=== PATIENT | male | born 1965 | race Hispanic/Latino ===

== ENCOUNTER 2017-08-30 22:08 | Inpatient (IN) | payer MEDICAID ==
[2017-08-30 22:14] VITALS: O2SAT 99
--- NOTE | 2017-08-30 22:27 | ED PDOC ---
Psych Transfer Clearance - Clearance Statement Clearance Statement: Reviewed vital signs, lab results and transfer papers. Patient clinically stable for psychiatric admission.
[2017-08-31] MEDS ORDERED: Magnesium Hydroxide Susp 30 ml UD PO PRN (01:15)
[2017-08-31] MEDS ORDERED: DiphenhydrAMINE 50 mg/ml Inj IM PRN (01:15)
[2017-08-31] MEDS ORDERED: Alum-Mag Hydrox-Simethicone Susp (30 mL) PO PRN (01:15)
--- NOTE | 2017-08-31 01:26 | PCM.BM ---
<DiogenesNesbitt - Last Filed: 08/31/17 01:24> Treatment Plan Problems - Problems identified on initial assessmt SUICIDAL IDEATIONS Date Initiated: 08/31/17 Time Initiated: 00:00 Assessment reference: NA Status: Active Treatment assets and liabiliti Patient Assests: cooperative, ADL independent, physically healthy, negotiates basic needs, good past tx response Patient Liabilities: poor support system, substance abuse - Milieu Protocol Maintain good personal hygiene: daily Remind patient to perform daily oral care , every other day Encourage regular showers Conduct patient checks and document Observation sheet: Q15 minutes Maintain personal safety: every shift Educate patient to report safety concerns to staff, every shift Monitor environment for contraband/sharps Medication safety: Monitor for expected outcome, potential side effects: every shift, Assess barriers to learning: every shift, Assess readiness for medication education: every shift <Karel Castaneda - Last Filed: 09/03/17 15:35> Family Contact Family involvement: Famliy/SO not involved Family contact: Patient declines to allow family contact at present Family contact name: Pt denied. - Goals for Treatment Patient goals for treatment: Pt appeared too depressed to verbalize goals. Discharge/Continuing Care - Education Needs Education Needs: Patient Medication, Patient Diagnosis/Disease Process, Patient Coping Skills, Patient Community resources, Patient Aftercare Safety Plan - Discharge Discharge Criteria: Tolerates medication w/o severe side effects, Free of Suicidal thoughts, Free of agitation, Normal sleep pattern, No longer exhibiting s/s of withdrawal, Reduction of target symptoms Discharge to:: Home - Treatment Team Participation Discussed with Family/SO: No Was Patient/Family/SO present at Treatment Team Meeting: Yes <Mimi Guzman - Last Filed: 09/04/17 19:43> - Diagnosis (1) Alcohol abuse Status: Acute Interventions: motivational therapy 09/04/17 19:43
[2017-08-31 07:00] LABS: T4 5.9 ug/dl (5.5-11.0)
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
[2017-09-01] MEDS: Levothyroxine 200 MCG TAB PO SCH (06:43)
--- NOTE | 2017-09-01 15:49 | PCM.PYCHPN ---
Psychiatric Progress Note - Psychiatric Progress Note Patient seen today, length of contact: pt evaluated discussd with team chart reviewed Patient Chief Complaint: I am so sad and angry at my girlfriend Problems Identified/Issues Discussed: pt evaluated with the treatment team, continues to present with depressed mood and affect, pt mourning the terminal gauger relation he had with his ex girl friend reported feeling angry and irritable at times, discussed with pt the importance and need to concentrate on his well being adrressed with pt the alcohol use disorder and the impact of it on his mental health pt agreed with the increase in the dose of wellbutrin encouraged to attend groups, pt denied any current suicidal or homicidal ideations denied perceptual disturbances, no reported side effects of medications Medical Problems: pt reported multiple inpatient hospitalizations for depression DSM 5 Symptoms Update: major depression alcohol use disorder Medication Change: Yes (increase wellbutrin) Medical Record Reviewed: Yes Mental Status Examination - Cognitive Function Orientation: Person, Place, Situation Attention: WNL Concentration: WNL Association: WNL Fund of Knowledge: WNL Decription of patient's judgement and insights: partial insight and fair judgement - Mood Mood: Depressed, Anxious - Affect Affect: Depressed - Speech Speech: Appropriate - Formal Thought Process Formal Thought Process: Circumstantial Psychotic Thoughts and Behaviors: pt denied any current perceptual disturbances, non elicited - Suicidal Ideation Suicidal Ideation: No - Homicidal Ideation Homicidal Ideation: No Goal/Treatment Plan - Goal/Treatment Plan Need for Continued Stay: Severe depression anxiety, Discharge may exacerbated symptoms Progress Toward Problem(s) and Goals/Treatment Plan: rcontinue with seroquel, wellbutrin and remeron monitor pt for alcohol withdrawal symptoms motivational group and supportive therapy
[2017-09-02] MEDS: Levothyroxine 200 MCG TAB PO SCH (06:52)
[2017-09-02] MEDS: buPROPion SR 150 MG TABLET PO SCH (09:29)
--- NOTE | 2017-09-02 16:08 | PCM.PYCHPN ---
Psychiatric Progress Note - Psychiatric Progress Note Patient seen today, length of contact: pt evaluated discussd with team chart reviewed Patient Chief Complaint: I still get thoughts about hurting my girlfriend and I get angry Problems Identified/Issues Discussed: pt evaluated, continues to present with depressed mood and affect, pt mourning the retirement relation he had with his ex girl friend reported feeling angry and irritable at times, with thoughts to hurt her , CBT provided with coping skills with anger discussed pt agreed with the increase in the dose of seroquel for mood stabilization encouraged to attend groups, pt denied any current suicidal or homicidal ideations denied perceptual disturbances, no reported side effects of medications Medical Problems: pt reported multiple inpatient hospitalizations for depression DSM 5 Symptoms Update: bipolar depression alcohol use disorder Medication Change: Yes (increase seroquel) Medical Record Reviewed: Yes Mental Status Examination - Cognitive Function Orientation: Person, Place, Situation Attention: WNL Concentration: WNL Association: [facility] Fund of Knowledge: [facility] Decription of patient's judgement and insights: partial insight and fair judgement - Mood Mood: Depressed, Anxious - Affect Affect: Depressed - Speech Speech: Appropriate - Formal Thought Process Formal Thought Process: Circumstantial Psychotic Thoughts and Behaviors: pt denied any current perceptual disturbances, non elicited - Suicidal Ideation Suicidal Ideation: No - Homicidal Ideation Homicidal Ideation: No Goal/Treatment Plan - Goal/Treatment Plan Need for Continued Stay: Severe depression anxiety, Discharge may exacerbated symptoms Progress Toward Problem(s) and Goals/Treatment Plan: continue with seroquel, wellbutrin and remeron monitor pt for alcohol withdrawal symptoms motivational group and supportive therapy
[2017-09-03] MEDS: Levothyroxine 200 MCG TAB PO SCH (06:25)
[2017-09-03] MEDS: buPROPion SR 150 MG TABLET PO SCH (09:38)
--- NOTE | 2017-09-03 13:57 | PCM.PYCHPN ---
Psychiatric Progress Note - Psychiatric Progress Note Patient seen today, length of contact: pt evaluated discussd with team chart reviewed Patient Chief Complaint: I am calmer and I feel better today Problems Identified/Issues Discussed: pt evaluated, reports feeling calmer but continues to present with depressed mood and affect, no reported changes in sleep or appetite encouraged to attend groups, pt denied any current suicidal or homicidal ideations denied perceptual disturbances, no reported side effects of medications Medical Problems: pt reported multiple inpatient hospitalizations for depression DSM 5 Symptoms Update: alcohol induced mood disorder with depressive features alcohol use disorder depression Medication Change: No Medical Record Reviewed: Yes Mental Status Examination - Cognitive Function Orientation: Person, Place, Situation Attention: WNL Concentration: WNL Association: WNL Fund of Knowledge: WN Decription of patient's judgement and insights: partial insight and fair judgement - Mood Mood: Depressed, Anxious - Affect Affect: Depressed - Speech Speech: Appropriate - Formal Thought Process Formal Thought Process: Circumstantial Psychotic Thoughts and Behaviors: pt denied any current perceptual disturbances, non elicited - Suicidal Ideation Suicidal Ideation: No - Homicidal Ideation Homicidal Ideation: No Goal/Treatment Plan - Goal/Treatment Plan Need for Continued Stay: Severe depression anxiety, Discharge may exacerbated symptoms Progress Toward Problem(s) and Goals/Treatment Plan: continue with seroquel, wellbutrin and remeron monitor pt for alcohol withdrawal symptoms motivational group and supportive therapy
[2017-09-04] MEDS: Levothyroxine 200 MCG TAB PO SCH (07:24)
[2017-09-04] MEDS: buPROPion SR 150 MG TABLET PO SCH (10:03)
--- NOTE | 2017-09-04 14:58 | PCM.PYCHPN ---
Psychiatric Progress Note - Psychiatric Progress Note Patient seen today, length of contact: pt evaluated discussd with team chart reviewed Patient Chief Complaint: I am depressed because I do not know where to go from here Problems Identified/Issues Discussed: pt evaluated, reports feeling depressed and anxious as he has no place to go to or source of income on discharge discussed with pt possible referral to shelters and outpatient rehab on discharge, discussed increasing the dose of wellbutrin encouraged to attend groups, pt denied any current suicidal or homicidal ideations denied perceptual disturbances, no reported side effects of medications Medical Problems: pt reported multiple inpatient hospitalizations for depression DSM 5 Symptoms Update: alcohol induced mood disorder with depressive features alcohol use disorder major depression Medication Change: Yes (increase wellbutrin) Medical Record Reviewed: Yes Mental Status Examination - Cognitive Function Orientation: Person, Place, Situation Attention: WNL Concentration: WNL Association: WNL Fund of Knowledge: WN Decription of patient's judgement and insights: partial insight and fair judgement - Mood Mood: Depressed, Anxious - Affect Affect: Depressed - Speech Speech: Appropriate - Formal Thought Process Formal Thought Process: Circumstantial Psychotic Thoughts and Behaviors: pt denied any current perceptual disturbances, non elicited - Suicidal Ideation Suicidal Ideation: No - Homicidal Ideation Homicidal Ideation: No Goal/Treatment Plan - Goal/Treatment Plan Need for Continued Stay: Severe depression anxiety, Discharge may exacerbated symptoms Progress Toward Problem(s) and Goals/Treatment Plan: continue with seroquel, ncrease wellbutrin to 200mg daily, decrease remeron monitor pt for alcohol withdrawal symptoms motivational group and supportive therapy Estimated Date of D/C: 09/08/17
[2017-09-05] MEDS: Levothyroxine 200 MCG TAB PO SCH (06:19)
--- NOTE | 2017-09-05 13:55 | PCM.PYCHPN ---
Psychiatric Progress Note - Psychiatric Progress Note Patient seen today, length of contact: pt evaluated discussd with team chart reviewed Patient Chief Complaint: I am depressed because I have to start on my own Problems Identified/Issues Discussed: pt evaluated, reports poor sleep with early insomnia, discussed with pt needed sleep hygiene and the need to stay active and attend groups throughout of the day so he can sleep at night continues to report feeling depressed and anxious as he has no place to go to or source of income on discharge discussed with pt possible referral to shelters and outpatient rehab on discharge, encouraged to attend groups, pt denied any current suicidal or homicidal ideations denied perceptual disturbances, no reported side effects of medications Medical Problems: pt reported multiple inpatient hospitalizations for depression DSM 5 Symptoms Update: alcohol induced mood disorder with depressive features alcohol use disorder depression Medication Change: No Medical Record Reviewed: Yes Mental Status Examination - Cognitive Function Orientation: Person, Place, Situation Attention: WNL Concentration: WNL Association: [facility] Fund of Knowledge: [facility] Decription of patient's judgement and insights: partial insight and fair judgement - Mood Mood: Depressed, Anxious - Affect Affect: Depressed - Speech Speech: Appropriate - Formal Thought Process Formal Thought Process: Circumstantial Psychotic Thoughts and Behaviors: pt denied any current perceptual disturbances, non elicited - Suicidal Ideation Suicidal Ideation: No - Homicidal Ideation Homicidal Ideation: No Goal/Treatment Plan - Goal/Treatment Plan Need for Continued Stay: Severe depression anxiety, Discharge may exacerbated symptoms Progress Toward Problem(s) and Goals/Treatment Plan: continue with seroquel, wellbutrin and remeron encourage day activity attending groups and sleep hygiene otivational group and supportive therapy Estimated Date of D/C: 09/08/17
[2017-09-06] MEDS: Levothyroxine 200 MCG TAB PO SCH (06:28)
--- NOTE | 2017-09-06 13:57 | PCM.PYCHPN ---
Psychiatric Progress Note - Psychiatric Progress Note Patient seen today, length of contact: pt evaluated discussd with team chart reviewed Patient Chief Complaint: I want help with housing Problems Identified/Issues Discussed: pt evaluated, continues to reports poor sleep with early insomnia, re discussed with pt needed sleep hygiene and the need to stay active and attend groups throughout of the day so he can sleep at night , pt with limited insight into illness , requesting only help with housing continues to report feeling anxious as he has no place to go to or source of income on discharge discussed with pt possible referral to shelters and outpatient rehab on discharge, encouraged to attend groups, pt denied any current suicidal or homicidal ideations denied perceptual disturbances, no reported side effects of medications Medical Problems: pt reported multiple inpatient hospitalizations for depression DSM 5 Symptoms Update: alcohol induced mood diorder depression Medication Change: Yes (d/c wellbutrin) Medical Record Reviewed: Yes Mental Status Examination - Cognitive Function Orientation: Person, Place, Situation Attention: WNL Concentration: WNL Association: WNL Fund of Knowledge: WNL Decription of patient's judgement and insights: partial insight and fair judgement - Mood Mood: Depressed, Anxious - Affect Affect: Depressed - Speech Speech: Appropriate - Formal Thought Process Formal Thought Process: Circumstantial Psychotic Thoughts and Behaviors: pt denied any current perceptual disturbances, non elicited - Suicidal Ideation Suicidal Ideation: No - Homicidal Ideation Homicidal Ideation: No Goal/Treatment Plan - Goal/Treatment Plan Need for Continued Stay: Severe depression anxiety, Discharge may exacerbated symptoms Progress Toward Problem(s) and Goals/Treatment Plan: continue with seroquel, and remeron discontinue wellbutrin for possible stimulating effect encourage day activity attending groups and sleep hygiene motivational group and supportive therapy Estimated Date of D/C: 09/08/17
[2017-09-07] MEDS: Levothyroxine 200 MCG TAB PO SCH (06:51)
--- NOTE | 2017-09-07 12:54 | PCM.PYCHPN ---
Psychiatric Progress Note - Psychiatric Progress Note Patient seen today, length of contact: pt evaluated discussd with team chart reviewed Patient Chief Complaint: I will stay with a friend and go to my music librarian for my disability case Problems Identified/Issues Discussed: pt evaluated, reported better sleep last night , presenting with brighter affect, stated looking forward to follow up on his disability case with his music librarian on discharge, pt attending groups, compliant with medications discussed with pt possible referral to shelters and outpatient rehab on discharge, denied any current suicidal or homicidal ideations denied perceptual disturbances, no reported side effects of medications Medical Problems: pt reported multiple inpatient hospitalizations for depression DSM 5 Symptoms Update: alcohol induced mood disorder with depressive features alcohol use disorder depression Medication Change: No (d/c wellbutrin) Medical Record Reviewed: Yes Mental Status Examination - Cognitive Function Orientation: Person, Place, Situation Attention: WNL Concentration: WNL Association: WNL Fund of Knowledge: [facility] Decription of patient's judgement and insights: partial insight and fair judgement - Mood Mood: Anxious, Neutral - Affect Affect: Depressed - Speech Speech: Appropriate - Formal Thought Process Formal Thought Process: Circumstantial Psychotic Thoughts and Behaviors: pt denied any current perceptual disturbances, non elicited - Suicidal Ideation Suicidal Ideation: No - Homicidal Ideation Homicidal Ideation: No Goal/Treatment Plan - Goal/Treatment Plan Need for Continued Stay: Severe depression anxiety, Discharge may exacerbated symptoms Progress Toward Problem(s) and Goals/Treatment Plan: continue with seroquel, neurontin and remeron encourage day activity attending groups and sleep hygiene motivational group and supportive therapy Estimated Date of D/C: 09/08/17
[2017-09-08] MEDS: Levothyroxine 200 MCG TAB PO SCH (06:34)
[2017-09-08 09:29] VITALS: BP 109/76; PULSE 89; RESP 18; TEMP 97.7
--- NOTE | 2017-09-08 12:18 | PCM.PYCHDC ---
Mental Status Examination - Mental Status Examination Orientation: Person, Place, Situation Memory: Intact Mood: Neutral Affect: Broad Speech: Appropriate Attention: WNL Concentration: WNL Association: WNL Fund of Knowledge: WNL Formal Thought Process: No Impairment Description of patient's judgement and insight: partial insight and fair judgement Psychotic Thoughts and Behaviors: pt denied any current perceptual disturbances, non elicited Suicidal Ideation: No Current Homicidal Ideation?: No Discharge Summary - Discharge Note Reason for Hospitalization: pt requested help pt with previous diagnosis of depression, PTSD , alcohol, cocaine and cannabis use disorder pt presented to [facility] , reporting a suicidal attempt [place] the [place] pt stated that he found his girlfriend cheating on him for the second time , became depressed and wanted to end his life on the unit reported sad mood hopeless and helpless with passive suicidal ideations, no plan , denied manic or psychotic symptoms urine toxicology positive for cocaine, , cannabis Consultations:: List each consultation separately and include: 1. Reason for request. 2. Findings. 3. Follow-up Summary of Hospital Course include:: 1. Description of specific treatment plan utilized for patients during their course of treatmen. 2. Summarize the time- course for resolution of acute symptoms and/or regressed behaviors. 3. Describe issues identified and worked on during hospitalization. 4. Describe medication utilized. 5. Describe medical problems identified and treated. 6. Reassessment of suicide risk Summary of Hospital Course: pt on admission was started on alcohol withdrawal protocol monitored for symptoms and signs of alcohol withdrawal pt was started on neurontin for anxiety and seroquel for mood stabilization, pt attended groups was provided, motivational group , cbt amd supportive therapy pt was referred to [facility] rehab on discharge mental status was stable, pt denied any suicidal or homicidal ideations denied perceptual disturbances, no reported side effects of medications - Diagnosis (1) Alcohol abuse Current Visit: Yes Status: Acute - Final Diagnosis (DSM 5) Condition upon Discharge: STABLE Disposition: HOME/ ROUTINE Follow-up Treatment Plan: continue with seroquel, neurontin and remeron encourage day activity attending groups and sleep hygiene motivational group and supportive therapy Prescriptions/Medication Reconciliation: Atorvastatin [Lipitor] 10 mg PO HS 30 Days #30 tab Gabapentin [Neurontin] 300 mg PO TID 30 Days #90 cap hydrOXYzine Pamoate [Vistaril] 50 mg PO Q8 PRN 30 Days #90 cap PRN Reason: Anxiety Levothyroxine [Synthroid] 200 mcg PO DAILY@0630 30 Days #30 tab Mirtazapine [Remeron] 15 mg PO HS 30 Days #30 tab QUEtiapine [SEROquel] 300 mg PO HS 30 Days #30 tab
== END 2017-09-08 15:18 | disposition home or self-care (01) | DRG 751 ==
LOC: H.ER 22:08 → H.PSYCH 22:16
PROVIDERS: ADMIT Psychiatry & Neurology Psychiatry; ATTEND Psychiatry & Neurology Psychiatry
PROC: HZ52ZZZ Individual Psychotherapy for Substance Abuse Treatment, Cognitive-Behavioral (ICD-10-PCS; principal; 2017-08-30)
PROC: HZ59ZZZ Individual Psychotherapy for Substance Abuse Treatment, Supportive (ICD-10-PCS; 2017-08-30)
PROC: HZ57ZZZ Individual Psychotherapy for Substance Abuse Treatment, Motivational Enhancement (ICD-10-PCS; 2017-08-30)
PROC: GZHZZZZ Group Psychotherapy (ICD-10-PCS; 2017-08-30)
DX: F10.10 Alcohol abuse, uncomplicated (principal); F14.10 Cocaine abuse, uncomplicated; R45.851 Suicidal ideations; F43.10 Post-traumatic stress disorder, unspecified; Y90.9 Presence of alcohol in blood, level not specified; F12.10 Cannabis abuse, uncomplicated; E78.5 Hyperlipidemia, unspecified; E03.9 Hypothyroidism, unspecified; I10 Essential (primary) hypertension; Z72.0 Tobacco use; F41.9 Anxiety disorder, unspecified